=== PATIENT | male | born 1930 | race African-American/Black ===

== ENCOUNTER 2019-02-20 04:13 | Inpatient (IN) | payer MEDICARE, OTHER ==
--- NOTE | 2019-02-20 04:44 | ER Document Report ---
ED General <MITCH DEGROOT - Last Filed: 02/20/19 10:24> <ART YEBOAH - Last Filed: 02/20/19 20:13> - General Chief Complaint: Fall Stated Complaint: Fall Time Seen by Provider: 02/20/19 04:29 Notes: Patient is an 88-year-old male that comes from home by EMS for chief complaint of fall. Patient tells me that he does not remember falling, he states he "woke up on the floor of the bathroom". He states then he crawled to his life alert and hit it. He lives by himself. He states his right arm felt numb but less so now. He states his right arm feels strange. He denies leg numbness (although EMS reports this). He denies back pain, hip pain, chest pain, abdominal pain, or any other focal numbness or weakness. He is not on a blood thinner except for aspirin. 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 Daughter is at bedside now. (ART YEBOAH) - Related Data Allergies/Adverse Reactions: lisinopril Allergy (Unknown, Verified 02/20/19 06:35) Past Medical History - General Information source: Patient, Emergency Med Personnel - Social History Smoking Status: Never Smoker Frequency of alcohol use: None Drug Abuse: None Lives with: Alone Family History: Reviewed & Not Pertinent - Past Medical History Cardiac Medical History: Reports: Hx Hypercholesterolemia, Hx Hypertension Neurological Medical History: Reports: Hx Cerebrovascular Accident - left cereb ellar Endocrine Medical History: Reports: Hx Diabetes Mellitus Type 2 Renal/ Medical History: Reports: Hx Benign Prostatic Hyperplasia - Immunizations Hx Diphtheria, Pertussis, Tetanus Vaccination: Yes <ART YEBOAH - Last Filed: 02/20/19 20:13> Review of Systems - Review of Systems Constitutional: See HPI EENT: No symptoms reported Cardiovascular: See HPI Respiratory: No symptoms reported Gastrointestinal: No symptoms reported Genitourinary: No symptoms reported Male Genitourinary: No symptoms reported Musculoskeletal: No symptoms reported Skin: No symptoms reported Hematologic/Lymphatic: No symptoms reported Neurological/Psychological: See HPI <ART YEBOAH - Last Filed: 02/20/19 20:13> Physical Exam <ART YEBOAH - Last Filed: 02/20/19 20:13> - Vital signs Vitals: BP 160/83 H 02/20/19 04:23 - Notes Notes: GENERAL: Alert, interacts well. No acute distress. HEAD: Normocephalic, atraumatic. EYES: Pupils equal, round, and reactive to light. Extraocular movements intact. ENT: Oral mucosa moist, tongue midline. Oropharynx unremarkable. Airway patent. Nares patent, no nasal septal hematoma. Very hard of hearing. NECK: Full range of motion. Supple. Trachea midline. LUNGS: Clear to auscultation bilaterally, no wheezes, rales, or rhonchi. No respiratory distress. HEART: Regular rate and rhythm. No murmur ABDOMEN: Soft, non-tender. Non-distended. Bowel sounds present in all 4 quadrants. GENITOURINARY: No obvious swelling, tenderness, or abnormality noted. EXTREMITIES: Moves all 4 extremities spontaneously. No edema, normal radial and dorsalis pedis pulses bilaterally. No cyanosis. There is a bruise over the right elbow area. BACK: no cervical, thoracic, lumbar midline tenderness. No saddle anesthesia, normal distal neurovascular exam. Moves all extremities in full range of motion. NEUROLOGICAL: Occasionally has difficulty finding words. He is oriented to person, place, but not events. Cranial nerves II through XII intact, however he fails [id number] testing on the right with right arm ataxia. PSYCH: Normal affect, normal mood. SKIN: Warm, dry, normal turgor. No rashes. Chronic skin changes over the chest wall with old scars. (ART YEBOAH) Course - Laboratory Result Diagrams: 02/20/19 05:50 02/20/19 04:50 <MITCH DEGROOT - Last Filed: 02/20/19 10:24> - Laboratory Result Diagrams: 02/20/19 05:50 02/20/19 04:50 <ART YEBOAH - Last Filed: 02/20/19 20:13> - Re-evaluation Re-evalutation: 02/20/19 08:[address] speak with Dr[address] Daugherty regarding admission as his delta troponin has increased. Patient continues to deny chest pain or shortness of breath. I did explain to him that the patient was a DNR DNI and that his daughter Julienne is the power of health care attorney. He will accept admission. (MITCH DEGROOT) Patient has slight drift of the right arm and has lack of coordination with [id number] testing with the right arm only. He has good proj mgr with the arm however. He has good sensation and coordination of his lower extremities. His neurological exam is normal otherwise. He denies a headache. He states he remembers being on the floor and crawling to hit his button but he cannot remember how he got on the floor. He does agree he probably passed out. CT of the head showing old left-sided cerebellar infarct. No acute findings. X-rays unremarkable. CBC shows mild leukocytosis, no bandemia. Mild macrocytic anemia. Chemistry shows elevated creatinine, troponin indeterminate at 0.14. Patient again denies any chest pain when I asked him again. Discussed with Dr. Oshea. Troponin will be cycled and based on this possibly heparin will be initiated. Patient will likely require admission either way for syncopal episode, his work-up is still pending. I did discuss with patient his labs, he states that he would not want a cardiac catheterization in any circumstance. He states he does not want invasive procedures. He states this despite me clearly asking, describing the procedure, and stating that he could without the procedure. He cannot recall if he is a DNR or DNI. 02/20/19 07:22 Daughter Julienne is again at bedside. She is much more awake now, just drank coffee. She relates to me that patient is in fact a DNR/DNI, she is his power of health care attorney, she states like the patient that he is not to have any invasive procedures such as cardiac catheterization and if he has an elevated troponin/NSTEMI he is to be treated medically only. She states he does have a history of chronic kidney disease. (ART YEBOAH) - Vital Signs Vital signs: Temp Pulse Resp BP Pulse Ox 98.3 F 61 15 166/53 H 99 02/20/19 14:45 02/20/19 19:00 02/20/19 14:45 02/20/19 14:45 02/20/19 14:45 - Laboratory Laboratory results interpreted by me: 02/20/19 02/20/19 02/20/19 04:50 05:50 07:25 WBC 11.8 H RBC 3.89 L Hgb 12.9 L MCV 100 H Lymphocytes % 12.9 L Absolute Neutrophils 9.0 H Chloride 108 H BUN 27 H Creatinine 2.11 H Est GFR ( Amer) 36 L Est GFR (Non-Af Amer) 30 L Alkaline Phosphatase 129 H Creatine Kinase 210 H Urine Protein 100 H Urine Blood MODERATE H Ur Leukocyte Esterase TRACE H - EKG Interpretation by Me Additional EKG results interpreted by me: EKG shows sinus rhythm at a rate of 64, no T wave inversions or ST segment changes in consecutive leads. Possible partial right bundle angel block. Normal axis. (ART YEBOAH) Discharge - Discharge Admitting Provider: Willow (Hospitalist) Unit Admitted: Telemetry <MITCH DEGROOT - Last Filed: 02/20/19 10:24> <ART YEBOAH - Last Filed: 02/20/19 20:13> - Discharge Clinical Impression: Elevated serum creatinine, Elevated troponin Episode of syncope Qualifiers: Syncope type: unspecified Qualified Code(s): R55 - Syncope and collapse Contusion of right shoulder Qualifiers: Encounter type: initial encounter Qualified Code(s): S40.011A - Contusion of right shoulder, initial encounter Condition: Stable Disposition: ADMITTED INPATIENT
[2019-02-20 05:28] LABS: ALANINE AMINOTRANSFERASE 21 U/L (21-72); ALBUMIN 3.7 g/dL (3.5-5.0); ALKALINE PHOSPHATASE 129 U/L (38-126); ANION GAP 8 (5-19); ASPARTATE AMINO TRANSFERASE 27 U/L (17-59); BILIRUBIN,DIRECT 0.2 mg/dL (0.0-0.4); BILIRUBIN,TOTAL 0.8 mg/dL (0.2-1.3); BLOOD UREA NITROGEN 27 mg/dL (7-20); CARBON DIOXIDE 26 mmol/L (22-30); CHLORIDE 108 mmol/L (98-107); CREATINE KINASE 210 U/L (55-170); GLUCOSE 91 mg/dL (75-110); POTASSIUM 4.1 mmol/L (3.6-5.0); SODIUM 142.2 mmol/L (137-145); TOTAL PROTEIN 6.5 g/dL (6.3-8.2)
--- NOTE | 2019-02-20 05:45 | RADIOLOGY REPORT (SQ) ---
EXAM DESCRIPTION: CT HEAD WITHOUT IV CONTRAST COMPLETED DATE/TME: 02/20/2019 04:39 CLINICAL HISTORY: 88 years, Male, change in right arm coordination COMPARISON: None. TECHNIQUE: 210 Images stored on PACS. All CT scanners at this facility use dose modulation, iterative reconstruction, and/or weight based dosing when appropriate to reduce radiation dose to as low as reasonably achievable (ALARA). [facility]: Dose Right [facility]: CareDose [facility]: Dose Right [facility]: Teradose 4D [facility]: [employer] LIMITATIONS: None. FINDINGS: The globes are intact. The paranasal sinuses show minor mucosal thickening of the maxillary sinuses bilaterally. No displaced or depressed skull fracture. No intra or extra-axial hemorrhage. CT is limited for evaluation of acute infarct. No CT evidence for large or territorial acute infarct. Age-appropriate atrophy with small vessel ischemic change. Old infarct of the left cerebellar hemisphere. No discrete mass or midline shift IMPRESSION: Age-appropriate atrophy. Small vessel ischemic change. Old left cerebellar infarct. TECHNICAL DOCUMENTATION: Quality ID # 436: Final reports with documentation of one or more dose reduction techniques (e.g., Automated exposure control, adjustment of the mA and/or kV according to patient size, use of iterative reconstruction technique) copyright 2010 [email or web address]- All Rights Reserved
--- NOTE | 2019-02-20 05:59 | RADIOLOGY REPORT (SQ) ---
EXAM DESCRIPTION: XR SHOULDER 2 OR MORE VIEWS COMPLETED DATE/TME: 02/20/2019 04:39 CLINICAL HISTORY: 88 years, Male, fall, bruising, pain COMPARISON: None. FINDINGS: 3 views of the right shoulder. No acute fracture or dislocation. Osteopenia. Spurring of the acromioclavicular joint. No acute abnormality of the visualized right ribs. Degenerative change of the glenohumeral joint. IMPRESSION: 1. No acute fracture or dislocation. copyright 2010 [employer]- All Rights Reserved
[2019-02-20] MEDS ORDERED: NORMAL SALINE 500 ML IV ONE ×2 (06:00→07:05)
--- NOTE | 2019-02-20 06:00 | RADIOLOGY REPORT (SQ) ---
EXAM DESCRIPTION: XR CHEST 1 VIEW COMPLETED DATE/TME: 02/20/2019 04:41 CLINICAL HISTORY: stroke like symptoms COMPARISON: None. FINDINGS: Single frontal view of the chest. Cardiomediastinal silhouette: Atherosclerotic calcification and tortuosity of the thoracic aorta. Heart is not enlarged. Low lung volumes. Lungs: No consolidation, pneumothorax, or pleural effusion. Leads overlie the chest. Bones: No acute osseous abnormality. Upper abdomen: No abnormality identified. IMPRESSION: 1. No acute pulmonary process identified.
[2019-02-20 06:10] LABS: ABSOLUTE EOSINOPHILS # (AUTO) 0.1 10^3/uL (0.0-0.6); ABSOLUTE LYMPHOCYTES (AUTO) 1.5 10^3/uL (0.5-4.7); ABSOLUTE MONOCYTES (AUTO) 1.2 10^3/uL (0.1-1.4); BASOPHILS % (AUTO) 0.4 % (0-2); EOSINOPHILS % (AUTO) 0.5 % (0-6); HEMATOCRIT 38.8 % (37.9-51.0); HEMOGLOBIN 12.9 g/dL (13.5-17.0); LYMPHOCYTES % (AUTO) 12.9 % (13-45); MEAN CORPUSCULAR HEMOGLOBIN 33.2 pg (27.0-33.4); MEAN CORPUSCULAR HGB CONC 33.2 g/dL (32.0-36.0); MEAN CORPUSCULAR VOLUME 100 fl (80-97); MONOCYTES % (AUTO) 10.5 % (3-13); PLATELET COUNT 155 10^3/uL (150-450); RED BLOOD COUNT 3.89 10^6/uL (4.35-5.55); RED CELL DISTRIBUTION WIDTH 13.4 % (11.5-14.0); SEGMENTED NEUTROPHILS % (AUTO) 75.7 % (42-78); TOTAL CELLS COUNTED % (AUTO) 100 %; WHITE BLOOD COUNT 11.8 10^3/uL (4.0-10.5)
[2019-02-20] MEDS ORDERED: ASPIRIN 81 MG TABLET, CHEWABLE PO ONE (07:05)
[2019-02-20 07:18] LABS: INTERNATIONAL RATION (INR) 0.99; PARTIAL THROMBOPLASTIN TIME 24.3 SEC (23.5-35.8); PROTHROMBIN TIME 13.1 SEC (11.4-15.4)
[2019-02-20 07:51] LABS: BILIRUBIN,URINE NEGATIVE (NEGATIVE); COLOR,URINE STRAW; GLUCOSE, URINE NEGATIVE (NEGATIVE); KETONES,URINE NEGATIVE (NEGATIVE); LEUKOCYTE ESTERASE,URINE TRACE (NEGATIVE); NITRITE,URINE NEGATIVE (NEGATIVE); PROTEIN,URINE 100 mg/dL (NEGATIVE); UROBILINOGEN,URINE NEGATIVE mg/dL (<2.0)
[2019-02-20 07:55] LABS: APPEARANCE,URINE CLEAR; URINE SPECIFIC GRAVITY 1.012
[2019-02-20] MEDS ORDERED: TEMAZEPAM 7.5 MG CAPSULE PO PRN (10:30)
[2019-02-20] MEDS ORDERED: ONDANSETRON HCL INJ/PF 4 MG/2 ML SDV IV PRN (10:30)
--- NOTE | 2019-02-20 11:24 | EKG REPORT ---
SEVERITY:- ABNORMAL ECG - SINUS RHYTHM LEFT ATRIAL ABNORMALITY INCOMPLETE RIGHT BUNDLE BRANCH BLOCK : Confirmed by: Sharon Contreras MD 20-Feb-2019 11:23:19
--- NOTE | 2019-02-20 21:27 | EKG REPORT ---
SEVERITY:- ABNORMAL ECG - SINUS BRADYCARDIA PROBABLE INFERIOR INFARCT, AGE INDETERMINATE : Confirmed by: Sharon Contreras MD 20-Feb-2019 21:26:55
[2019-02-20] MEDS ORDERED: FAMOTIDINE 20 MG TABLET PO SCH (22:00)
--- NOTE | 2019-02-20 22:43 | PDOC H&P ---
History of Present Illness Admission Date/PCP: 02/20/19 10:37 Patient complains of: he reports falling on the way to the bathroom around 4am. had trouble pulling himself up on the toilet, and had to call 911. denies LOC or injury from fall. He does have qtc > 500 on admission and RBBB on ekg. Patient is a DNR. Denies acute SOB, unilateral weakness, or CP. History of Present Illness: ELDER CASTELLANOS is a 88 year old male Past Medical History Cardiac Medical History: Reports: Hyperlipidema, Hypertension Neurological Medical History: Reports: Other - Hx of TIA Endocrine Medical History: Reports: Diabetes Mellitus Type 2 Past Surgical History Past Surgical History: Reports: None Social History Information Source: Patient Lives with: Alone Smoking Status: Never Smoker Frequency of Alcohol Use: None Hx Recreational Drug Use: No Family History Family History: Reviewed & Not Pertinent Parental Family History Reviewed: Yes Children Family History Reviewed: Yes Sibling(s) Family History Reviewed.: Yes Medication/Allergy Home Medications: Amlodipine Besylate [Norvasc 5 mg Tablet] 5 mg PO DAILY 02/20/19 Atorvastatin Calcium [Lipitor 20 mg Tablet] 20 mg PO QHS 02/20/19 Furosemide [Lasix 20 mg Tablet] 20 mg PO DAILY 02/20/19 Metoprolol Succinate [Toprol Xl 25 mg Tab.sr] 25 mg PO DAILY 02/20/19 Tamsulosin HCl [Flomax 0.4 mg Cap.sr] 0.4 mg PO DAILY 02/20/19 Allergies/Adverse Reactions: lisinopril Allergy (Unknown, Verified 02/20/19 06:35) Review of Systems Constitutional: ABSENT: chills, fever(s), headache(s), weight gain, weight loss Eyes: ABSENT: visual disturbances Ears: ABSENT: hearing changes Nose, Mouth, and Throat: ABSENT: as per HPI, headache(s), mouth pain, sore throat, vertigo, other Cardiovascular: ABSENT: chest pain, dyspnea on exertion, edema, orthropnea, palpitations Respiratory: ABSENT: cough, hemoptysis Gastrointestinal: ABSENT: abdominal pain, constipation, diarrhea, hematemesis, hematochezia, nausea, vomiting Genitourinary: ABSENT: dysuria, hematuria Musculoskeletal: ABSENT: joint swelling Integumentary: ABSENT: rash, wounds Neurological: PRESENT: as per HPI Physical Exam Vital Signs: Temp Pulse Resp BP Pulse Ox 98.3 F 49 L 15 166/53 H 99 02/20/19 14:45 02/20/19 14:45 02/20/19 14:45 02/20/19 14:45 02/20/19 14:45 Intake & Output 02/19/19 02/20/19 02/21/19 06:59 06:59 06:59 Intake Total 1000 Balance 1000 Weight 82.1 kg Results Laboratory Results: 02/20/19 05:50 02/20/19 04:50 02/20/19 02/20/19 02/20/19 04:50 04:50 05:50 WBC Cancelled 11.8 H RBC Cancelled 3.89 L Hgb Cancelled 12.9 L Hct Cancelled 38.8 MCV Cancelled 100 H MCH Cancelled 33.2 MCHC Cancelled 33.2 RDW Cancelled 13.4 Plt Count Cancelled 155 Seg Neutrophils % Cancelled 75.7 Lymphocytes % Cancelled 12.9 L Monocytes % Cancelled 10.5 Eosinophils % Cancelled 0.5 Basophils % Cancelled 0.4 Absolute Neutrophils Cancelled 9.0 H Absolute Lymphocytes Cancelled 1.5 Absolute Monocytes Cancelled 1.2 Absolute Eosinophils Cancelled 0.1 Absolute Basophils Cancelled 0.0 Sodium 142.2 Potassium 4.1 Chloride 108 H Carbon Dioxide 26 Anion Gap 8 BUN 27 H Creatinine 2.11 H Est GFR ( Amer) 36 L Est GFR (Non-Af Amer) 30 L Glucose 91 Calcium 9.0 Magnesium Total Bilirubin 0.8 AST 27 ALT 21 Alkaline Phosphatase 129 H Total Protein 6.5 Albumin 3.7 Urine Color Urine Appearance Urine pH Ur Specific Frost Urine Protein Urine Glucose (UA) Urine Ketones Urine Blood Urine Nitrite Ur Leukocyte Esterase Urine WBC (Auto) Urine RBC (Auto) 02/20/19 02/20/19 07:25 07:35 WBC RBC Hgb Hct MCV MCH MCHC RDW Plt Count Seg Neutrophils % Lymphocytes % Monocytes % Eosinophils % Basophils % Absolute Neutrophils Absolute Lymphocytes Absolute Monocytes Absolute Eosinophils Absolute Basophils Sodium Potassium Chloride Carbon Dioxide Anion Gap BUN Creatinine Est GFR ( Amer) Est GFR (Non-Af Amer) Glucose Calcium Magnesium 1.9 Total Bilirubin AST ALT Alkaline Phosphatase Total Protein Albumin Urine Color STRAW Urine Appearance CLEAR Urine pH 6.0 Ur Specific Frost 1.012 Urine Protein 100 H Urine Glucose (UA) NEGATIVE Urine Ketones NEGATIVE Urine Blood MODERATE H Urine Nitrite NEGATIVE Ur Leukocyte Esterase TRACE H Urine WBC (Auto) 6 Urine RBC (Auto) 4 02/20/19 02/20/19 02/20/19 04:50 04:50 07:35 Creatine Kinase 210 H Troponin I 0.147 0.190 Impressions: Head CT 02/20/19 04:39 IMPRESSION: Age-appropriate atrophy. Small vessel ischemic change. Old left cerebellar infarct. TECHNICAL DOCUMENTATION: Quality ID # 436: Final reports with documentation of one or more dose reduction techniques (e.g., Automated exposure control, adjustment of the mA and/or kV according to patient size, use of iterative reconstruction technique) copyright 2010 [employer]- All Rights Reserved Shoulder X-Ray 02/20/19 04:39 IMPRESSION: 1. No acute fracture or dislocation. copyright 2010 [employer]- All Rights Reserved Chest X-Ray 02/20/19 04:41 IMPRESSION: 1. No acute pulmonary process identified. Assessment and Plan - Diagnosis (1) Prolonged Q-T interval on ECG Is this a current diagnosis for this admission?: Yes Plan: -516. avoid drugs that prolong qtc. -check mag level (2) RBBB Is this a current diagnosis for this admission?: Yes Plan: patient does not want intervention, and remains DNR. can external pace if we need. he does episodes of bradycardia on tele with HR in the 50s which may be why he had the pre-syncope episode. stop metoprolol to assess. (3) Elevated troponin Is this a current diagnosis for this admission?: Yes Plan: not cath candidate. seems to be some demand ischemia. no symptoms clinically. (4) Episode of syncope Qualifiers: Syncope type: unspecified Qualified Code(s): R55 - Syncope and collapse Is this a current diagnosis for this admission?: Yes Plan: (presyncope)- likely related to bradycardia. does not appear to be tia related. - Time Time Spent with patient: 25-34 minutes Medications reviewed and adjusted accordingly: Yes
[2019-02-20] MEDS ORDERED: ATORVASTATIN CALCIUM 20 MG TABLET PO ONE (23:00)
[2019-02-21 07:16] LABS: HEMATOCRIT 37.7 % (37.9-51.0); HEMOGLOBIN 12.7 g/dL (13.5-17.0); MEAN CORPUSCULAR HEMOGLOBIN 33.7 pg (27.0-33.4); MEAN CORPUSCULAR HGB CONC 33.6 g/dL (32.0-36.0); MEAN CORPUSCULAR VOLUME 101 fl (80-97); PLATELET COUNT 147 10^3/uL (150-450); RED BLOOD COUNT 3.76 10^6/uL (4.35-5.55); RED CELL DISTRIBUTION WIDTH 13.3 % (11.5-14.0)
[2019-02-21 07:40] LABS: ALANINE AMINOTRANSFERASE 26 U/L (21-72); ALBUMIN 2.9 g/dL (3.5-5.0); ALKALINE PHOSPHATASE 100 U/L (38-126); ANION GAP 5 (5-19); ASPARTATE AMINO TRANSFERASE 26 U/L (17-59); BILIRUBIN,DIRECT 0.2 mg/dL (0.0-0.4); BLOOD UREA NITROGEN 26 mg/dL (7-20); CALCIUM 8.5 mg/dL (8.4-10.2); CARBON DIOXIDE 27 mmol/L (22-30); CHLORIDE 108 mmol/L (98-107); CHOLESTEROL 128.92 mg/dL (0-200); GLUCOSE 87 mg/dL (75-110); POTASSIUM 4.3 mmol/L (3.6-5.0); SODIUM 140.3 mmol/L (137-145); TOTAL PROTEIN 5.5 g/dL (6.3-8.2); TRIGLYCERIDES 54 mg/dL (<150)
[2019-02-21 07:51] LABS: DIRECT LDL 55 mg/dL (<100)
[2019-02-21 07:57] LABS: FREE T4 (FREE THYROXINE) 0.92 ng/dL (0.78-2.19)
[2019-02-21 08:11] LABS: THYROID STIMULATING HORMONE 2.56 uIU/mL (0.47-4.68)
[2019-02-21] MEDS: AMLODIPINE BESYLATE 5 MG TABLET PO SCH (09:18)
[2019-02-21] MEDS: TAMSULOSIN HCL 0.4 MG CAP.SR.24H PO SCH (09:18)
[2019-02-21] MEDS: ATORVASTATIN CALCIUM 20 MG TABLET PO SCH (21:28)
--- NOTE | 2019-02-22 07:58 | PDOC PROGRESS REPORT ---
Subjective Progress Note for:: 02/21/19 Subjective:: patient reports improvements. no chest pain. breathing okay. little sore from fall. lives alone in one br apt. appetite fair Reason For Visit: NSTEMI,SYNCOPE Physical Exam Vital Signs: Temp Pulse Resp BP Pulse Ox 98.7 F 50 L 17 146/58 H 99 02/21/19 23:00 02/22/19 07:00 02/21/19 23:00 02/21/19 23:00 02/21/19 23:00 Intake & Output 02/21/19 02/22/19 02/23/19 06:59 06:59 06:59 Intake Total 1380 613 Output Total 950 1350 Balance 430 -737 Weight 80.9 kg 80 kg General appearance: PRESENT: no acute distress, well-developed, well-nourished Head exam: PRESENT: atraumatic, normocephalic Eye exam: PRESENT: conjunctiva pink, EOMI, PERRLA. ABSENT: scleral icterus Ear exam: PRESENT: normal external ear exam Mouth exam: PRESENT: moist, tongue midline Neck exam: ABSENT: carotid bruit, JVD, lymphadenopathy, thyromegaly Respiratory exam: PRESENT: clear to auscultation jesus. ABSENT: rales, rhonchi, wheezes Cardiovascular exam: PRESENT: RRR. ABSENT: diastolic murmur, rubs, systolic murmur Pulses: PRESENT: normal dorsalis pedis pul Vascular exam: PRESENT: normal capillary refill GI/Abdominal exam: PRESENT: normal bowel sounds, soft. ABSENT: distended, gu arding, mass, organolmegaly, rebound, tenderness Rectal exam: PRESENT: deferred Extremities exam: PRESENT: full ROM. ABSENT: calf tenderness, clubbing, pedal edema Neurological exam: PRESENT: alert, awake, oriented to person, oriented to place, oriented to time, oriented to situation, CN II-XII grossly intact. ABSENT: mot or sensory deficit Psychiatric exam: PRESENT: appropriate affect, normal mood. ABSENT: homicidal ideation, suicidal ideation Skin exam: PRESENT: dry, intact, warm. ABSENT: cyanosis, rash Results Laboratory Results: 02/21/19 05:47 02/21/19 05:47 02/20/19 02/21/19 02/21/19 04:50 05:47 05:47 WBC Cancelled RBC Cancelled Hgb Cancelled Hct Cancelled MCV Cancelled MCH Cancelled MCHC Cancelled RDW Cancelled Plt Count Cancelled Seg Neutrophils % Cancelled Lymphocytes % Cancelled Monocytes % Cancelled Eosinophils % Cancelled Basophils % Cancelled Absolute Neutrophils Cancelled Absolute Lymphocytes Cancelled Absolute Monocytes Cancelled Absolute Eosinophils Cancelled Absolute Basophils Cancelled Sodium 140.3 Potassium 4.3 Chloride 108 H Carbon Dioxide 27 Anion Gap 5 BUN 26 H Creatinine 2.02 H Est GFR ( Amer) 38 L Est GFR (Non-Af Amer) 31 L Glucose 87 Calcium 8.5 Magnesium 2.0 Total Bilirubin 1.0 AST 26 ALT 26 Alkaline Phosphatase 100 Total Protein 5.5 L Albumin 2.9 L Triglycerides 54 Cholesterol 128.92 LDL Cholesterol Direct 55 VLDL Cholesterol 11.0 HDL Cholesterol 57 TSH 2.56 Free T4 0.92 02/20/19 02/20/19 02/20/19 04:50 04:50 07:35 Creatine Kinase 210 H Troponin I 0.147 0.190 Impressions: Head CT 02/20/19 04:39 IMPRESSION: Age-appropriate atrophy. Small vessel ischemic change. Old left cerebellar infarct. TECHNICAL DOCUMENTATION: Quality ID # 436: Final reports with documentation of one or more dose reduction techniques (e.g., Automated exposure control, adjustment of the mA and/or kV according to patient size, use of iterative reconstruction technique) copyright 2010 [employer]- All Rights Reserved Shoulder X-Ray 02/20/19 04:39 IMPRESSION: 1. No acute fracture or dislocation. copyright 2010 [employer]- All Rights Reserved Chest X-Ray 02/20/19 04:41 IMPRESSION: 1. No acute pulmonary process identified. Assessment and Plan - Diagnosis (1) Prolonged Q-T interval on ECG Is this a current diagnosis for this admission?: Yes Plan: -516 in ER. avoid drugs that prolong qtc. -normal mag and k+ -re-check qtc was corrected when off metoprolol. -will defer re-initiation of beta consuelo to manager lighting (2) RBBB Is this a current diagnosis for this admission?: Yes Plan: patient does not want intervention, and remains DNR. can external pace if we need. he's had asymptomatic episodes of bradycardia on tele with HR in the 50s which may be why he had the pre-syncope episode. stopped metoprolol on admission due to prolonged qtci (3) Elevated troponin Is this a current diagnosis for this admission?: Yes Plan: not cath candidate. NSTEMI prior to admission. may have been cause of fall or occurred post stress of fall. no ekg changes. no symptoms clinically. bb held due to problems 1 and 2. (4) Episode of syncope Qualifiers: Syncope type: unspecified Qualified Code(s): R55 - Syncope and collapse Is this a current diagnosis for this admission?: Yes Plan: (presyncope)- likely related to bradycardia +/- nstemi. does not appear to be tia related. - Time Time Spent with patient: 15-24 minutes
[2019-02-22] MEDS: AMLODIPINE BESYLATE 5 MG TABLET PO SCH (09:50)
[2019-02-22] MEDS: TAMSULOSIN HCL 0.4 MG CAP.SR.24H PO SCH (09:50)
[2019-02-22] MEDS: ATORVASTATIN CALCIUM 20 MG TABLET PO SCH (22:09)
--- NOTE | 2019-02-22 23:38 | PDOC PROGRESS REPORT ---
Subjective Progress Note for:: 02/22/19 Subjective:: patient has not experienced anymore syncope episodes. he is working with PT. daughter is going to stay with him on d/c from hospital. denies fever/chills/cp/sob. Reason For Visit: NSTEMI,SYNCOPE Physical Exam Vital Signs: Temp Pulse Resp BP Pulse Ox 98.5 F 59 L 19 165/71 H 100 02/22/19 15:00 02/22/19 15:00 02/22/19 15:00 02/22/19 15:00 02/22/19 15:00 Intake & Output 02/21/19 02/22/19 02/23/19 06:59 06:59 06:59 Intake Total 1380 613 400 Output Total 950 1350 Balance 430 -737 400 Weight 80.9 kg 80 kg General appearance: PRESENT: no acute distress, well-developed, well-nourished Head exam: PRESENT: atraumatic, normocephalic Eye exam: PRESENT: conjunctiva pink, EOMI, PERRLA. ABSENT: scleral icterus Ear exam: PRESENT: normal external ear exam Mouth exam: PRESENT: moist, tongue midline Neck exam: ABSENT: carotid bruit, JVD, lymphadenopathy, thyromegaly Respiratory exam: PRESENT: clear to auscultation jesus. ABSENT: rales, rhonchi, wheezes Cardiovascular exam: PRESENT: RRR. ABSENT: diastolic murmur, rubs, systolic murmur Pulses: PRESENT: normal dorsalis pedis pul Vascular exam: PRESENT: normal capillary refill GI/Abdominal exam: PRESENT: normal bowel sounds, soft. ABSENT: distended, guarding, mass, organolmegaly, rebound, tenderness Rectal exam: PRESENT: deferred Extremities exam: PRESENT: full ROM. ABSENT: calf tenderness, clubbing, pedal edema Neurological exam: PRESENT: alert, awake, oriented to person, oriented to place, oriented to time, oriented to situation, CN II-XII grossly intact. ABSENT: motor sensory deficit Psychiatric exam: PRESENT: appropriate affect, normal mood. ABSENT: homicidal ideation, suicidal ideation Skin exam: PRESENT: dry, intact, warm. ABSENT: cyanosis, rash Results Laboratory Results: 02/21/19 05:47 02/21/19 05:47 07/09/19 07/09/19 07/09/19 04:50 04:50 07:35 Creatine Kinase 210 H Troponin I 0.147 0.190 Impressions: Head CT 02/20/19 04:39 IMPRESSION: Age-appropriate atrophy. Small vessel ischemic change. Old left cerebellar infarct. TECHNICAL DOCUMENTATION: Quality ID # 436: Final reports with documentation of one or more dose reduction techniques (e.g., Automated exposure control, adjustment of the mA and/or kV according to patient size, use of iterative reconstruction technique) copyright 2010 [employer]- All Rights Reserved Shoulder X-Ray 02/20/19 04:39 IMPRESSION: 1. No acute fracture or dislocation. copyright 2010 [employer]- All Rights Reserved Chest X-Ray 02/20/19 04:41 IMPRESSION: 1. No acute pulmonary process identified. Assessment and Plan - Diagnosis (1) Prolonged Q-T interval on ECG Is this a current diagnosis for this admission?: Yes Plan: -516 in ER. avoid drugs that prolong qtc. -normal mag and k+ -qtc corrected after metoprolol d/c. -will defer re-initiation of beta consuelo to plum packer (2) RBBB Is this a current diagnosis for this admission?: Yes Plan: patient does not want intervention, and remains DNR. can external pace if he's symptomatic. he's had asymptomatic episodes of bradycardia on tele monitor with HR in the 50s which may have contributed to pre-syncope episode. stopped metoprolol on admission due to prolonged qtci (3) Elevated troponin Is this a current diagnosis for this admission?: Yes Plan: not cath candidate. NSTEMI prior to admission. may have been cause of fall or occurred post stress of fall. no ekg changes. no symptoms clinically. bb held due to problems 1 and 2. (4) Episode of syncope Qualifiers: Syncope type: unspecified Qualified Code(s): R55 - Syncope and collapse Is this a current diagnosis for this admission?: Yes Plan: (presyncope)- likely related to bradycardia +/- nstemi. does not appear to be tia related.working with PT for stability. - Time Time Spent with patient: 15-24 minutes Medications reviewed and adjusted accordingly: Yes Anticipated discharge: Home with Homehealth
[2019-02-23] MEDS: TAMSULOSIN HCL 0.4 MG CAP.SR.24H PO SCH (10:07)
[2019-02-23] MEDS: AMLODIPINE BESYLATE 5 MG TABLET PO SCH (10:07)
--- NOTE | 2019-02-23 17:01 | PDOC PROGRESS REPORT ---
Subjective Progress Note for:: 02/23/19 Subjective:: patient improving. appetite good. working with PT. strength increasing. family to come stay with him on d/c for few days. after lengthy discussion of events leading up to admission. seems he vasovagaled down when having bowel movement. prolonged qtci on admission. resolved with stopping of bb. nursing called today report hr in 130s when patient up going to bathroom. not on bb. asymptomatic. consider restarting/cardiology consult. patient code status makes interventions like cath out. could externally pace. Reason For Visit: NSTEMI,SYNCOPE Physical Exam Vital Signs: Temp Pulse Resp BP Pulse Ox 98.3 F 70 19 143/71 H 100 02/23/19 11:50 02/23/19 14:00 02/23/19 11:50 02/23/19 11:50 02/23/19 11:50 Intake & Output 02/22/19 02/23/19 02/24/19 06:59 06:59 06:59 Intake Total 613 1650 600 Output Total 1350 700 Balance -737 950 600 Weight 80 kg 80 kg General appearance: PRESENT: no acute distress, thin Head exam: PRESENT: atraumatic, normocephalic Eye exam: PRESENT: conjunctiva pink, EOMI, PERRLA. ABSENT: scleral icterus Ear exam: PRESENT: normal external ear exam Mouth exam: PRESENT: moist, tongue midline Neck exam: ABSENT: carotid bruit, JVD, lymphadenopathy, thyromegaly Respiratory exam: PRESENT: clear to auscultation jesus. ABSENT: rales, rhonchi, wheezes Cardiovascular exam: PRESENT: RRR. ABSENT: diastolic murmur, rubs, systolic murmur Pulses: PRESENT: normal dorsalis pedis pul Vascular exam: PRESENT: normal capillary refill GI/Abdominal exam: PRESENT: normal bowel sounds, soft. ABSENT: distended, guarding, mass, organolmegaly, rebound, tenderness Rectal exam: PRESENT: deferred Extremities exam: PRESENT: full ROM. ABSENT: calf tenderness, clubbing, pedal edema Neurological exam: PRESENT: alert, awake, oriented to person, oriented to place, oriented to time, oriented to situation, CN II-XII grossly intact. ABSENT: motor sensory deficit Psychiatric exam: PRESENT: appropriate affect, normal mood. ABSENT: homicidal ideation, suicidal ideation Skin exam: PRESENT: dry, intact, warm. ABSENT: cyanosis, rash Results Laboratory Results: 02/21/19 05:47 02/21/19 05:47 02/20/19 02/20/19 02/20/19 04:50 04:50 07:35 Creatine Kinase 210 H Troponin I 0.147 0.190 Impressions: Head CT 02/20/19 04:39 IMPRESSION: Age-appropriate atrophy. Small vessel ischemic change. Old left cerebellar infarct. TECHNICAL DOCUMENTATION: Quality ID # 436: Final reports with documentation of one or more dose reduction techniques (e.g., Automated exposure control, adjustment of the mA and/or kV according to patient size, use of iterative reconstruction technique) copyright 2010 [employer]- All Rights Reserved Shoulder X-Ray 02/20/19 04:39 IMPRESSION: 1. No acute fracture or dislocation. copyright 2010 [employer]- All Rights Reserved Chest X-Ray 02/20/19 04:41 IMPRESSION: 1. No acute pulmonary process identified. Assessment and Plan - Diagnosis (1) Prolonged Q-T interval on ECG Is this a current diagnosis for this admission?: Yes Plan: on admission. normal after stopping metoprolol. (2) RBBB Is this a current diagnosis for this admission?: Yes Plan: patient does not want intervention, and remains DNR. can external pace if he's symptomatic. he's had asymptomatic episodes of bradycardia on tele monitor with HR in the 50s which may have contributed to pre-syncope episode. stopped metoprolol on admission due to prolonged qtci 02/23 consider cardiology consult. could try CCB > BB for control. consider ext pace. would need to stop amlodopine if that route desired (3) Elevated troponin Is this a current diagnosis for this admission?: Yes Plan: not cath candidate. NSTEMI prior to admission. may have been cause of fall or occurred post stress of fall. no ekg changes. no symptoms clinically. bb held due to problems 1 and 2. 02/23- consider restarting bb. on statin. asa not given because of falls risk. (4) Episode of syncope Qualifiers: Syncope type: unspecified Qualified Code(s): R55 - Syncope and collapse Is this a current diagnosis for this admission?: Yes Plan: (presyncope)- likely related to bradycardia +/- nstemi +/- vasovagal during valsava down for BM. does not appear to be tia related.working with PT for stability. needs HH for walker and PT and therapy. - Time Time Spent with patient: 15-24 minutes Medications reviewed and adjusted accordingly: Yes Anticipated discharge: Home with Homehealth - Inpatient Certification Based on my medical assessment, after consideration of the patient's comorbi dities, presenting symptoms, or acuity I expect that the services needed warrant INPATIENT care.: Yes I certify that my determination is in accordance with my understanding of Medicare's requirements for reasonable and necessary INPATIENT services [42 CFR 412.3e].: Yes - Plan Summary Plan Summary: ean CAGLE build strength
[2019-02-23] MEDS: ATORVASTATIN CALCIUM 20 MG TABLET PO SCH (21:38)
[2019-02-24 05:14] LABS: HEMATOCRIT 39.9 % (37.9-51.0); HEMOGLOBIN 13.4 g/dL (13.5-17.0); MEAN CORPUSCULAR HEMOGLOBIN 33.6 pg (27.0-33.4); MEAN CORPUSCULAR HGB CONC 33.5 g/dL (32.0-36.0); MEAN CORPUSCULAR VOLUME 100 fl (80-97); PLATELET COUNT 157 10^3/uL (150-450); RED BLOOD COUNT 3.98 10^6/uL (4.35-5.55); RED CELL DISTRIBUTION WIDTH 13.4 % (11.5-14.0); WHITE BLOOD COUNT 9.2 10^3/uL (4.0-10.5)
[2019-02-24 05:39] LABS: ANION GAP 6 (5-19); BLOOD UREA NITROGEN 30 mg/dL (7-20); CALCIUM 8.7 mg/dL (8.4-10.2); CARBON DIOXIDE 26 mmol/L (22-30); CHLORIDE 106 mmol/L (98-107); GLUCOSE 109 mg/dL (75-110); POTASSIUM 4.4 mmol/L (3.6-5.0)
[2019-02-24] MEDS ORDERED: NORMAL SALINE 1000 ML 1,000 ML IV PRN (08:23)
[2019-02-24] MEDS: TAMSULOSIN HCL 0.4 MG CAP.SR.24H PO SCH (10:31)
[2019-02-24] MEDS: AMLODIPINE BESYLATE 5 MG TABLET PO SCH (10:31)
--- NOTE | 2019-02-24 10:53 | PDOC DISCHARGE SUMMARY ---
General - Admit/Disc Date/PCP Admission Date/Primary Care Provider: 02/20/19 10:37 Discharge Date: 02/24/19 - Discharge Diagnosis (1) Non-ST elevation (NSTEMI) myocardial infarction Is this a current diagnosis for this admission?: Yes (2) Acute kidney injury Is this a current diagnosis for this admission?: Yes (3) Prolonged QT interval Is this a current diagnosis for this admission?: Yes (4) Syncope Is this a current diagnosis for this admission?: Yes (5) Hypertension Is this a current diagnosis for this admission?: Yes (6) Hyperlipidemia Is this a current diagnosis for this admission?: Yes (7) Type 2 diabetes mellitus Is this a current diagnosis for this admission?: Yes - Additional Information Home Medications: Amlodipine Besylate [Norvasc 5 mg Tablet] 5 mg PO DAILY 02/20/19 Atorvastatin Calcium [Lipitor 20 mg Tablet] 20 mg PO QHS 02/20/19 Furosemide [Lasix 20 mg Tablet] 20 mg PO DAILY 02/20/19 Metoprolol Succinate [Toprol Xl 25 mg Tab.sr] 25 mg PO DAILY 02/20/19 Tamsulosin HCl [Flomax 0.4 mg Cap.sr] 0.4 mg PO DAILY 02/20/19 History of Present Illness History of Present Illness: ELDER CASTELLANOS is a 88 year old male he reports falling on the way to the bathroom around 4am. had trouble pulling himself up on the toilet, and had to call 911. denies LOC or injury from fall. He does have qtc > 500 on admission and RBBB on ekg. Patient is a DNR. Denies acute SOB, unilateral weakness, or CP. 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 Patient tells that he does not remember falling, he states he "woke up on the floor of the bathroom". His EKG shows prolonged QT interval and incomplete right bundle branch block and is blood work shows acute kidney injury with creatinine of 2.11. Patient also found to have elevated troponin the first set was 0.147 and the second set 0.190. Patient has been managed conservatively and his kidney function is improving evidenced by his creatinine is trending down. Patient eats well and tolerates well. He does not have any acute respiratory problem. He is awake alert oriented. Patient participated with physical therapy and physical therapist recommended home health. Patient is stable enough to go home today. Physical Exam Vital Signs: Temp Pulse Resp BP Pulse Ox 98.3 F 69 19 152/85 H 94 02/24/19 07:40 02/24/19 07:40 02/24/19 07:40 02/24/19 07:40 02/24/19 07:40 Intake & Output 02/23/19 02/24/19 02/25/19 06:59 06:59 06:59 Intake Total 1650 1070 Output Total 700 Balance 950 1070 Weight 80 kg 80.2 kg General appearance: PRESENT: no acute distress Eye exam: PRESENT: conjunctiva pink Neck exam: ABSENT: carotid bruit, JVD, lymphadenopathy, thyromegaly Respiratory exam: PRESENT: clear to auscultation jesus. ABSENT: rales, rhonchi, wheezes Cardiovascular exam: PRESENT: RRR. ABSENT: diastolic murmur, rubs, systolic murmur GI/Abdominal exam: PRESENT: normal bowel sounds, soft. ABSENT: distended, guarding, mass, organolmegaly, rebound, tenderness Neurological exam: PRESENT: alert Results Laboratory Results: 02/24/19 04:24 02/24/19 04:24 02/24/19 02/24/19 04:24 04:24 WBC 9.2 RBC 3.98 L Hgb 13.4 L Hct 39.9 MCV 100 H MCH 33.6 H MCHC 33.5 RDW 13.4 Plt Count 157 Sodium 138.0 Potassium 4.4 Chloride 106 Carbon Dioxide 26 Anion Gap 6 BUN 30 H Creatinine 1.85 H Est GFR ( Amer) 42 L Est GFR (Non-Af Amer) 35 L Glucose 109 Calcium 8.7 02/20/19 02/20/19 02/20/19 04:50 04:50 07:35 Creatine Kinase 210 H Troponin I 0.147 0.190 Impressions: Head CT 02/20/19 04:39 IMPRESSION: Age-appropriate atrophy. Small vessel ischemic change. Old left cerebellar infarct. TECHNICAL DOCUMENTATION: Quality ID # 436: Final reports with documentation of one or more dose reduction techniques (e.g., Automated exposure control, adjustment of the mA and/or kV according to patient size, use of iterative reconstruction technique) copyright 2010 [employer]- All Rights Reserved Shoulder X-Ray 02/20/19 04:39 IMPRESSION: 1. No acute fracture or dislocation. copyright 2010 [employer]- All Rights Reserved Chest X-Ray 02/20/19 04:41 IMPRESSION: 1. No acute pulmonary process identified. Qualifiers - * PATIENT BEING DISCHARGED WITH ANY OF THE FOLLOWING DIAGNOSIS: No Acute Heart Failure - Is this a Heart Failure Patient?: No LVEF < 40%?: No- if no continue to question #3 3. Anticoagulant therapy for permanect/persistent/paraoxysmal Afib or Aflutter: N/A
[2019-02-24 12:40] VITALS: BP 147/77
== END 2019-02-24 13:30 | disposition home health service (06) | DRG 281 ==
LOC: ER 04:13 → EH 10:37 → 4N 14:19
PROVIDERS: ADMIT Hospitalist; ATTEND Hospitalist
DX: I21.4 Non-ST elevation (NSTEMI) myocardial infarction (principal); N17.9 Acute kidney failure, unspecified; I45.10 Unspecified right bundle-branch block; I45.81 Long QT syndrome; E11.8 Type 2 diabetes mellitus with unspecified complications; E78.5 Hyperlipidemia, unspecified; I10 Essential (primary) hypertension; N40.0 Benign prostatic hyperplasia without lower urinary tract symptoms; H91.90 Unspecified hearing loss, unspecified ear; R55 Syncope and collapse; Z66 Do not resuscitate; Z77.098 Contact with and (suspected) exposure to other hazardous, chiefly nonmedicinal, chemicals; Z60.2 Problems related to living alone; Z86.73 Personal history of transient ischemic attack (TIA), and cerebral infarction without residual deficits; W18.39XA Other fall on same level, initial encounter; Y93.89 Activity, other specified; Y92.091 Bathroom in other non-institutional residence as the place of occurrence of the external cause
CPT/HCPCS: 36415; 70450; 71045; 80048; 80053; 80061; 81001; 82550; 82962; 83036; 83735; 84439; 84443; 84484; 85025; 85027; 85610; 85730; 93005; 93010; 96360; 96361; 99285; J7040